=== PATIENT | male | born 1955 | race African-American/Black ===

== ENCOUNTER 2020-04-22 14:35 | Emergency (ER) | payer SELFPAY ==
--- NOTE | 2020-04-22 17:43 | RAD ---
CHEST ONE VIEW: 04/22/20 at 6;29 p.m. HISTORY: Acid reflux. FINDINGS: The heart size is normal. The aorta is tortuous. The lungs are expanded without focal area of consoli dation, pneumothoraces, or pleural effusions. IMPRESSION: No acute process. POS: EARNESTINEA
[2020-04-22 18:20] LABS: #Basophils 0.1 thou/uL (0.0-0.2); #Eosinphils 0.1 thou/uL (0.0-0.7); #Monocytes 0.6 thou/uL (0.11-0.59); #Neutrophils 4.8 thou/uL (1.40-6.50); %Basophils 1.2 % (0.0-1.0); %Lymphocytes 34.6 % (21.0-51.0); %Monocytes 7.1 % (0.0-10.0); %Neutrophils 56.2 % (42.0-75.0); Hemoglobin 13.9 g/dL (14.0-18.0); Mean Corpuscular HGB CONC 32.1 g/dL (32.0-36.0); Mean Corpuscular Hemoglobin 27.1 pg (27.0-31.0); Mean Corpuscular Volume 84.5 fL (78.0-98.0); Mean Platelet Volume 7.7 fL (7.4-10.4); Platelet Count 381 thou/uL (130-400); RBC Distribution Width 15.9 % (11.5-14.5); Red Blood Cell (RBC) Count 5.13 mill/uL (4.70-6.10); White Blood Cell (WBC) Count 8.6 thou/uL (4.8-10.8)
[2020-04-22 18:44] LABS: ALT (SGPT) 11 U/L (8-55); AST (SGOT) 20 U/L (5-34); Albumin 4.8 g/dL (3.4-4.8); Alkaline Phosphatase 82 U/L (40-110); Anion Gap 12 mmol/L (10-20); BUN (Urea Nitrogen) 14 mg/dL (8.4-25.7); Bilirubin, Total 0.5 mg/dL (0.2-1.2); Calc. Creatinine Clearance 0 mL/min (70-130); Calcium 9.8 mg/dL (7.8-10.44); Carbon Dioxide 27 mmol/L (23-31); Chloride 105 mmol/L (98-107); Estimated GFR-MDRD 79; Globulin 3.8 g/dL (2.4-3.5); Glucose 110 mg/dL (80-115); Lipase 21 U/L (8-78); Potassium 3.7 mmol/L (3.5-5.1); Protein, Total 8.6 g/dL (5.8-8.1); Sodium 140 mmol/L (136-145)
[2020-04-22] MEDS ORDERED: Aspirin Chewable 81 MG TAB ONE (18:47)
[2020-04-22] MEDS ORDERED: Ondansetron PF 4 MG/2 ML Vial ONE (18:47)
[2020-04-22] MEDS ORDERED: Nitroglycerin 2% Ointment 1 INCH/1 GM Packet ONE (18:47)
[2020-04-22] MEDS ORDERED: Gabapentin 100 MG CAP PO SCH (20:30)
[2020-04-22] MEDS ORDERED: Gabapentin 400 MG CAP PO SCH (20:30)
--- NOTE | 2020-04-24 17:38 | EKG ---
Test Reason : Blood Pressure : / mmHG Vent. Rate : 061 BPM Atrial Rate : 061 BPM P-R Int : 106 ms QRS Dur : 094 ms QT Int : 418 ms P-R-T Axes : 060 -16 009 degrees QTc Int : 420 ms Sinus rhythm with short GA Voltage criteria for left ventricular hypertrophy Abnormal ECG Confirmed by SHAWN SILVA, PEPE Holley ([id number]), purchase request editor HOMERO ORTIZ ([id number]) on 04/24/2020 5:37:52 PM Referred By: Confirmed By:PEPE ESCOBAR MD
== END 2020-04-22 21:00 | disposition left against medical advice (07) ==
LOC: ERS 14:35
DX: R07.9 Chest pain, unspecified (principal); I10 Essential (primary) hypertension; F17.210 Nicotine dependence, cigarettes, uncomplicated; Z79.899 Other long term (current) drug therapy
CPT/HCPCS: 71045; 80053; 83690; 84484; 85025; 93005; 94760; 96374; J2405

== ENCOUNTER 2020-08-23 20:26 | Observation (INO) | payer OTHER ==
[2020-08-23] MEDS ORDERED: Mag-Al 1200 mg/1200 mg/30 ML UDCUP ONE (20:42)
[2020-08-23] MEDS ORDERED: Ondansetron PF 4 MG/2 ML Vial ONE (20:42)
[2020-08-23] MEDS ORDERED: Lidocaine Viscous Sol 2% 15 ml UD Cup ONE (20:42)
[2020-08-23 20:58] LABS: #Basophils 0.1 thou/uL (0.0-0.2); #Eosinphils 0.1 thou/uL (0.0-0.7); #Lymphocytes 2.6 thou/uL (1.20-3.40); #Monocytes 0.8 thou/uL (0.11-0.59); #Neutrophils 7.2 thou/uL (1.40-6.50); %Basophils 0.8 % (0.0-1.0); %Eosinophils 1.2 % (0.0-10.0); %Lymphocytes 23.9 % (21.0-51.0); %Monocytes 7.4 % (0.0-10.0); %Neutrophils 66.7 % (42.0-75.0); Hemoglobin 12.9 g/dL (14.0-18.0); Mean Corpuscular HGB CONC 33.4 g/dL (32.0-36.0); Mean Corpuscular Hemoglobin 27.8 pg (27.0-31.0); Mean Corpuscular Volume 83.3 fL (78.0-98.0); Mean Platelet Volume 7.5 fL (7.4-10.4); Platelet Count 352 thou/uL (130-400); RBC Distribution Width 15.6 % (11.5-14.5); Red Blood Cell (RBC) Count 4.63 mill/uL (4.70-6.10); White Blood Cell (WBC) Count 10.8 thou/uL (4.8-10.8)
[2020-08-23 21:20] LABS: ALT (SGPT) 9 U/L (8-55); AST (SGOT) 20 U/L (5-34); Albumin 4.3 g/dL (3.4-4.8); Alkaline Phosphatase 70 U/L (40-110); Anion Gap 15 mmol/L (10-20); BUN (Urea Nitrogen) 12 mg/dL (8.4-25.7); Bilirubin, Total 0.3 mg/dL (0.2-1.2); Calc. Creatinine Clearance 0 mL/min (70-130); Carbon Dioxide 23 mmol/L (23-31); Chloride 105 mmol/L (98-107); Estimated GFR-MDRD Greater than 90; Globulin 3.5 g/dL (2.4-3.5); Glucose 81 mg/dL (80-115); Lipase 18 U/L (8-78); Potassium 4.4 mmol/L (3.5-5.1); Protein, Total 7.8 g/dL (5.8-8.1); Sodium 139 mmol/L (136-145)
--- NOTE | 2020-08-23 21:48 | RAD ---
ABDOMINAL SURVEY WITH UPRIGHT CHEST AND TWO VIEW ABDOMEN: Technique: PA chest and supine and upright views of the abdomen obtained. Indications: Epigastric pain, vomiting. FINDINGS: The lung gaona are clear. Heart and mediastinum appear normal. Bowel gas pattern unremarkable. Scattered stool and gas in the colon. No mass or abnormal calcificati ons. Osseous structures unremarkable. IMPRESSION: Unremarkable exam. POS: AGW
[2020-08-23] MEDS ORDERED: Promethazine HCl 25 MG/ML VIAL ONE (22:10)
[2020-08-23] MEDS ORDERED: hydrALAZINE 20 MG/ML VIAL SLOW IVP SCH (23:15)
[2020-08-23] MEDS ORDERED: Baclofen 10 MG TAB PO SCH (23:45)
[2020-08-23] MEDS ORDERED: Pantoprazole 40 MG VIAL IVP SCH (23:59)
--- NOTE | 2020-08-24 00:51 | PDOC.HHP ---
Hospitalist HPI - History of Present Illness Hiccups, reflux and vomiting History of Present Illness: ADMISSION DATE: 08/23/2020 TIME OF ASSESSMENT: 2300 PRIMARY CARE PHYSICIAN: [facility] CHIEF COMPLAINT: Persistent reflux, vomiting and hiccups HPI: Patient presents to the emergency department after experiencing an episode of coffee-ground emesis earlier today that occurred once. States he has had p ersistent vomiting unable to tolerate any p.o. intake since last Sunday. He states it first started with severe reflux that began Sunday morning when he woke up and has persisted throughout the day every day since. It has only resolved at night when he is sleeping. States he has a known history of reflux in the past but has never undergone any endoscopic procedures. Patient reports having persistent hiccups as well throughout the day. He takes omeprazole at home but this has not helped. He saw his new primary care physician at the OR clinic on Sunday but has not followed up with him since developing the symptoms. ROS: Denies having any abdominal pain or cramping. Reports mild soreness due to persistent hiccups. Has not had any fevers chills or sweats. Denies any bowel changes or urinary symptoms. Has not experienced any chest pain palpitations or shortness of breath. All other review systems are negative apart from those mentioned above in HPI. ED COURSE: He had an EKG done in the emergency department showing a normal sinus rhythm with a heart rate of 75. No ST changes or T wave abnormalities. Labs notable for white cell count 10.8 hemoglobin 12.9 hematocrit 30.6 platelets 352 neutrophils 66.7%. Potassium 4.4, BUN 12, creatinine 0.81, GFR greater than 90. LFTs unremarkable. Lipase normal. Troponin negative. Abdominal x-ray showed unremarkable exam. In the emergency department he was given a GI cocktail as well as Phenergan 12.5 mg IV for nausea/vomiting. Also given 4 mg of Zofran. For an elevated blood pressure in the 190s to low 200s systolic he was given hydralazine 10 mg IV. PAST MEDICAL HISTORY: 1. Hypertension 2. GERD 3. Hepatitis C 4. PTSD 5. Tobacco use PAST SURGICAL HISTORY: Left knee meniscus repair SOCIAL HISTORY: Patient reports smoking 3 cigarettes a day. Smoked heavily in the past. Denies any recent alcohol consumption. States he is a social drinker. Denies any drug use. FAMILY HISTORY: Noncontributory ALLERGIES: Penicillin CURRENT MEDICATIONS: 1. Hydralazine 25 mg p.o. 3 times daily 2. Atenolol 25 mg p.o. daily 3. Omeprazole 40 mg p.o. daily - Exam General Appearance: NAD (Persistent hiccups, no distress), awake alert General - other findings: Temperature 98.2, BP 116/100, HR 91, RR 18, O2 sat 97% on room air. Eye: PERRL, anicteric sclera ENT: normocephalic atraumatic, no oropharyngeal lesions, moist mucosa Neck: supple, no lymphadenopathy Heart: RRR Respiratory: CTAB, no wheezes, no rales, normal chest expansion Gastrointestinal: soft, non-tender, non-distended, normal bowel sounds, no guarding, no rigidity Extremities: no edema Skin: normal turgor, no lesions, no rashes Neurological: cranial nerve grossly intact, normal sensation to touch Musculoskeletal: normal tone, normal strength Psychiatric: normal affect, normal behavior, A&O x 3 Hospitalist Results - Labs Result Diagrams: 08/23/20 20:49 08/23/20 20:49 Lab results: WBC 10.8 thou/uL (4.8-10.8) 08/23/20 20:49 Hgb 12.9 g/dL (14.0-18.0) L 08/23/20 20:49 Hct 38.6 % (42.0-52.0) L 08/23/20 20:49 MCV 83.3 fL (78.0-98.0) 08/23/20 20:49 Plt Count 352 thou/uL (130-400) 08/23/20 20:49 Neutrophils % 66.7 % (42.0-75.0) 08/23/20 20:49 Sodium 139 mmol/L (136-145) 08/23/20 20:49 Potassium 4.4 mmol/L (3.5-5.1) 08/23/20 20:49 Chloride 105 mmol/L (98-107) 08/23/20 20:49 Carbon Dioxide 23 mmol/L (23-31) 08/23/20 20:49 BUN 12 mg/dL (8.4-25.7) 08/23/20 20:49 Creatinine 0.81 mg/dL (0.7-1.3) 08/23/20 20:49 Glucose 81 mg/dL (80-115) 08/23/20 20:49 Calcium 9.0 mg/dL (7.8-10.44) 08/23/20 20:49 Total Bilirubin 0.3 mg/dL (0.2-1.2) 08/23/20 20:49 AST 20 U/L (5-34) 08/23/20 20:49 ALT 9 U/L (8-55) 08/23/20 20:49 Alkaline Phosphatase 70 U/L (40-110) 08/23/20 20:49 Troponin I 0.010 ng/mL (< 0.028) 08/23/20 23:52 Serum Total Protein 7.8 g/dL (5.8-8.1) 08/23/20 20:49 Albumin 4.3 g/dL (3.4-4.8) 08/23/20 20:49 Lipase 18 U/L (8-78) 08/23/20 20:49 Hospitalist H&P A/P - Problem (1) Coffee ground emesis Code(s): K92.0 - HEMATEMESIS Status: Acute Assessment and Plan: Repeat H/H Pantoprazole 40 mg IV x 1, and continue daily. NPO. GI Consult. (2) Nausea and vomiting Code(s): R11.2 - NAUSEA WITH VOMITING, UNSPECIFIED Status: Acute Assessment and Plan: Continue anti-emetics prn. Check electrolytes. (3) Hiccups Code(s): R06.6 - HICCOUGH Status: Acute Assessment and Plan: Baclofen 10 mg IV x 1. Obtain CXR. (4) GERD (gastroesophageal reflux disease) Code(s): K21.9 - GASTRO-ESOPHAGEAL REFLUX DISEASE WITHOUT ESOPHAGITIS Status: Chronic Assessment and Plan: As above, continue Pantoprazole. (5) Hypertensive urgency Code(s): I16.0 - HYPERTENSIVE URGENCY Status: Acute Assessment and Plan: Given hydralazine 10 mg IV in the ED with improvement. Monitor BP. Resume home meds once verified. (6) Essential hypertension Code(s): I10 - ESSENTIAL (PRIMARY) HYPERTENSION Status: Chronic Assessment and Plan: As above, resume home meds as appropriate and monitor BP. (7) History of hepatitis Code(s): Z86.19 - PERSONAL HISTORY OF OTHER INFECTIOUS AND PARASITIC DISEASES Status: Chronic - Plan Plan: CODE STATUS FULL Case discussed with Dr. Perez who agrees with plan as above.
[2020-08-24] MEDS: Sodium Chloride 0.9% 1,000 ML IV SCH ×2 (01:27→20:20)
[2020-08-24 01:39] VITALS: BMI 20.5
[2020-08-24 02:51] LABS: #Basophils 0.1 thou/uL (0.0-0.2); #Eosinphils 0.1 thou/uL (0.0-0.7); #Lymphocytes 2.9 thou/uL (1.20-3.40); #Monocytes 0.9 thou/uL (0.11-0.59); #Neutrophils 5.6 thou/uL (1.40-6.50); %Basophils 0.8 % (0.0-1.0); %Eosinophils 1.4 % (0.0-10.0); %Lymphocytes 30.5 % (21.0-51.0); %Neutrophils 58.3 % (42.0-75.0); Hemoglobin 13.4 g/dL (14.0-18.0); Mean Corpuscular HGB CONC 34.1 g/dL (32.0-36.0); Mean Corpuscular Hemoglobin 28.5 pg (27.0-31.0); Mean Corpuscular Volume 83.4 fL (78.0-98.0); Mean Platelet Volume 7.5 fL (7.4-10.4); Platelet Count 347 thou/uL (130-400); RBC Distribution Width 15.6 % (11.5-14.5); White Blood Cell (WBC) Count 9.6 thou/uL (4.8-10.8)
[2020-08-24 03:15] LABS: Troponin I 0.013 ng/mL (< 0.028)
[2020-08-24 03:24] LABS: ALT (SGPT) 10 U/L (8-55); AST (SGOT) 15 U/L (5-34); Albumin 4.1 g/dL (3.4-4.8); Alkaline Phosphatase 74 U/L (40-110); Anion Gap 13 mmol/L (10-20); BUN (Urea Nitrogen) 11 mg/dL (8.4-25.7); Bilirubin, Total 0.4 mg/dL (0.2-1.2); Calc. Creatinine Clearance 77 mL/min (70-130); Calcium 9.4 mg/dL (7.8-10.44); Carbon Dioxide 23 mmol/L (23-31); Chloride 106 mmol/L (98-107); Estimated GFR-MDRD Greater than 90; Globulin 3.2 g/dL (2.4-3.5); Glucose 94 mg/dL (80-115); Potassium 3.8 mmol/L (3.5-5.1); Protein, Total 7.3 g/dL (5.8-8.1); Sodium 138 mmol/L (136-145)
--- NOTE | 2020-08-24 07:51 | ULT ---
GALLBLADDER ULTRASOUND: Date: 08/24/2020 HISTORY: Right upper quadrant pain. FINDINGS: Real-time imaging of the right upper quadrant shows a normal sized gallbladder. Small amount of gallb ladder sludge without any definite stones. Common duct is 4.0 mm. Liver is of mild increased echogeni city. Right kidney is normal in size and not obstructed. The pancreas is obscured. IMPRESSION: 1. Suggestion of some mild fatty change of the liver. 2. Minimal gallbladder sludge. POS: OFF
--- NOTE | 2020-08-24 09:08 | RAD ---
CHEST 2 VIEWS: Date: 08/24/2020 HISTORY: Forceful vomiting. COMPARISON: Radiograph dated 08/22/2020. FINDINGS: Lungs are mildly hyperinflated. No confluent air space consolidation, pneumothorax, or effusion. No a cute osseous abnormality. IMPRESSION: No acute intrathoracic abnormality. POS: H
[2020-08-24] MEDS: Pantoprazole 40 MG VIAL IVP SCH (10:23)
[2020-08-24 11:09] LABS: SARS-CoV-2 MS2 Positive; SARS-CoV-2 N Gene Negative; SARS-CoV-2 S Gene Negative; SARS-CoV-2 by NAA Not Detected (NotDetected); SARS-CoV-2 orf1ab Negative
[2020-08-24] MEDS ORDERED: Ondansetron PF 4 MG/2 ML Vial IVP PRN (12:30)
--- NOTE | 2020-08-24 12:43 | PDOC.HOSPP ---
- Subjective Encounter Date: 08/24/20 Encounter Time: 12:41 Subjective: Mr De Jesus was seen today in follow-up chronic hiccups, and vomiting. He says he feel fine, and that his symptoms usually only start when he eats. - Objective Vital Signs & Weight: Vital Signs (12 hours) Temp Pulse Resp BP Pulse Ox 08/24/20 11:21 98.9 F 63 18 197/105 H 99 08/24/20 08:15 98.7 F 62 16 171/97 H 97 08/24/20 04:00 98.9 F 74 18 167/100 H 98 Weight Weight 126 lb 12.8 oz Result Diagrams: 08/24/20 02:40 08/24/20 02:40 Hospitalist ROS - Medication Medications: Active Medications Generic Name Dose Route Start Last Admin Trade Name Freq PRN Reason Stop Dose Admin Sodium Chloride 1,000 mls @ 50 mls/hr 08/23/20 23:45 08/24/20 01:27 Normal Saline 0.9% IV 1,000 mls .Q20H TYRONE Administration Pantoprazole Sodium 40 mg 08/24/20 09:00 08/24/20 10:23 Pantoprazole 40 Mg Vial IVP 40 mg DAILY TYRONE Administration - Exam General Appearance: NAD, awake alert General - other findings: Cachectic Eye: PERRL, anicteric sclera Heart: RRR, no murmur, no gallops, no rubs, normal peripheral pulses Respiratory: CTAB, no wheezes, no rales, no ronchi, normal chest expansion, no tachypnea, normal percussion Gastrointestinal: soft, non-tender, non-distended, normal bowel sounds, no palpable masses, no hepatomegaly Extremities: no cyanosis, no edema Hosp A/P (1) Coffee ground emesis Code(s): K92.0 - HEMATEMESIS Status: Acute (2) Hiccups Code(s): R06.6 - HICCOUGH Status: Chronic (3) Hypertensive urgency Code(s): I16.0 - HYPERTENSIVE URGENCY Status: Acute (4) Essential hypertension Code(s): I10 - ESSENTIAL (PRIMARY) HYPERTENSION Status: Chronic (5) GERD (gastroesophageal reflux disease) Code(s): K21.9 - GASTRO-ESOPHAGEAL REFLUX DISEASE WITHOUT ESOPHAGITIS Status: Chronic - Plan * Vomiting, and Hiccups- ? etiology- continue Protonix IV * Add Anti-emetic * HTN with hypertensive Urgency- will add Hydralazine prn, while he is NPO
[2020-08-24] MEDS: hydrALAZINE 20 MG/ML VIAL SLOW IVP PRN (15:57)
[2020-08-24] MEDS ORDERED: Atenolol 25 MG TAB PO SCH (17:15)
[2020-08-24] MEDS ORDERED: Acetaminophen 325 MG TAB PO PRN (20:13)
--- NOTE | 2020-08-24 23:59 | CON ---
DATE OF CONSULTATION: 08/24/2020 REASON FOR CONSULTATION: Coffee-grounds emesis, nausea, and vomiting. CONSULTING PROVIDER: Ms. Valentina Mccarthy. HISTORY OF PRESENT ILLNESS: The patient is a 64-year-old male, with past medical history of hypertension, GERD, chronic hepatitis C, PTSD, and tobacco abuse, presenting with complaints of nausea vomiting, and coffee-grounds emesis x3. On questioning the patient, he states that over the last seven years he has been having recurrent episodes of acid reflux, characterized as increased substernal pyrosis, regurgitation, and ultimately resulting in increased hiccups, nausea, and vomiting. He states that he would get the reflux symptoms first (substernal pyrosis), which would then lead to hiccuping that he could not control and ultimately with nausea and vomiting to the point where the patient would vomit once or twice every 1 to 2 days. He has been evaluated for this in the past, but ultimately just placed on PPIs and discharged to outpatient followup. However, over the last week, the patient had been having increasing episodes of these reflux events to the point where he was having at least 2 to 3 episodes of vomiting every 1 to 2 days. Ultimately, he did continue to have vomiting that resulted in coffee-grounds emesis x3 yesterday, but no overtly bloody emesis. With the appearance of this darker colored emesis that prompted him to seek healthcare assistance at [facility]. Since admission to the hospital, he has had no further episodes of nausea, vomiting, coffee-ground, or otherwise. Upon further questioning, he does state that he has had approximately 15-pound weight loss over the last 1 to 2 weeks, but otherwise denies any fevers, chills, melena, hematochezia, dysphagia, odynophagia, diarrhea, or constipation. REVIEW OF SYSTEMS: A 10-category review of systems was obtained with all responses negative, except for the pertinent positives as listed in the HPI. PAST MEDICAL HISTORY: As per HPI. PAST SURGICAL HISTORY: Left knee meniscus repair. FAMILY HISTORY: Denies any GI malignancies. SOCIAL HISTORY: Smokes approximately 3 to 4 cigarettes a day, although he does state that he quit this last week. Denies any recent alcohol consumption in addition to no illicit drug use. OUTPATIENT MEDICATIONS: Reviewed. ALLERGIES: PENICILLIN. PHYSICAL EXAMINATION: VITAL SIGNS: Temperature 98.7, pulse 56, blood pressure 182/110, respiratory rate 18, and saturating 97% on room air. GENERAL: The patient is lying in bed, in no acute distress. Alert and oriented x4. HEENT: Normocephalic and atraumatic. NECK: Supple. No JVD or scleral icterus noted. CARDIOVASCULAR: Regular rate and rhythm, with no discernible murmurs, gallops, or rubs. RESPIRATORY: Clear to auscultation bilaterally, with no discernible wheezes or rales. ABDOMEN: Normoactive bowel sounds. Soft, nontender, and nondistended. EXTREMITIES: No cyanosis, clubbing, or edema. LABORATORY DATA: CBC with a white blood cell count of 9.6, hemoglobin 13.4, hematocrit 39.2, and platelets 347. Chemistry with a sodium of 138, potassium 3.8, chloride 106, CO2 of 23, BUN 11, creatinine 0.8, glucose 94, AST 15, ALT 10, alkaline phosphatase 74, and total bilirubin 0.4. IMAGING DATA: The patient had an acute abdominal series obtained on August 23, 2020, which was unremarkable showing a scattered stool and gas pattern in the colon, no masses or abnormal calcifications were seen. Abdominal ultrasound obtained on August 24, 2020, showed normal-sized gallbladder with a small amount of gallbladder sludge without any definite stones. Common bile duct measured 4 mm in diameter with the liver showing mild increased echogenicity suggestive of mild fatty change. ASSESSMENT AND PLAN: The patient is a 64-year-old male, with past medical history of hypertension, gastroesophageal reflux disease, chronic hepatitis C infection, posttraumatic stress disorder, and tobacco abuse, presenting with gastroesophageal reflux disease resulting in nausea, vomiting, and now coffee-ground hematemesis without significant change in his H and H. Gastroesophageal reflux disease/hematemesis. The patient states that he has been having a longstanding history of acid reflux, characterized as substernal pyrosis that ultimately resulted in repeated episodes of nausea and vomiting that has been present for the last seven years. This is also accompanied with increased hiccuping for which the patient has been not definitively treated for. He adds that he has been placed on PPI administration in the past with improvement in his symptoms, but it is unclear if he is taking the medication now (the patient states that he was taking it three times a day, 30 to 45 minutes before every meal). At this time, one of the more likely explanations would be these continued episodes of vomiting resulting in erosive esophagitis and ultimately mild oozing of blood, creating coffee-grounds emesis, but no significant change in his H and H, however, differential could include esophagitis, gastritis, peptic ulcer disease, arteriovenous malformation, Dieulafoy lesion and/or possible GI neoplasm (less likely). RECOMMENDATIONS: 1. We would continue to trend his H and H and transfuse as necessary to maintain an H and H of 7/21. 2. Continue to monitor clinically for signs of active GI bleeding. 3. We would place the patient on a clear liquid diet today with plans to perform EGD tomorrow morning. 4. Please make patient n.p.o. at midnight in anticipation of the procedure in the morning. 5. We would continue the patient on pantoprazole 40 mg IV daily as part of treatment of his acid reflux and will ultimately need to be discharged on this medication. 6. I would recommend better control of his acid reflux as part of treatment of his hiccups. 7. If the patient has only reflux esophagitis on upper endoscopy tomorrow, he could be potentially discharged to home after the procedure with followup in the outpatient clinic. Job ID: [id number]
[2020-08-25] MEDS: hydrALAZINE 20 MG/ML VIAL SLOW IVP PRN (03:00)
[2020-08-25 04:41] LABS: #Basophils 0.1 thou/uL (0.0-0.2); #Eosinphils 0.1 thou/uL (0.0-0.7); #Lymphocytes 2.9 thou/uL (1.20-3.40); #Monocytes 0.7 thou/uL (0.11-0.59); #Neutrophils 3.7 thou/uL (1.40-6.50); %Basophils 1.3 % (0.0-1.0); %Eosinophils 1.2 % (0.0-10.0); %Monocytes 9.1 % (0.0-10.0); %Neutrophils 49.4 % (42.0-75.0); Hemoglobin 13.7 g/dL (14.0-18.0); Mean Corpuscular HGB CONC 33.2 g/dL (32.0-36.0); Mean Corpuscular Hemoglobin 27.6 pg (27.0-31.0); Mean Corpuscular Volume 83.2 fL (78.0-98.0); Mean Platelet Volume 7.8 fL (7.4-10.4); Platelet Count 399 thou/uL (130-400); RBC Distribution Width 15.6 % (11.5-14.5); Red Blood Cell (RBC) Count 4.96 mill/uL (4.70-6.10); White Blood Cell (WBC) Count 7.5 thou/uL (4.8-10.8)
--- NOTE | 2020-08-25 07:44 | PDOC.HOSPP ---
- Objective Vital Signs & Weight: Vital Signs (12 hours) Temp Pulse Resp BP BP Pulse Ox 08/25/20 04:04 98.0 F 65 20 172/96 H 98 08/25/20 03:00 57 L 188/108 H 08/25/20 02:38 57 L 188/108 H 08/25/20 00:25 99 175/111 H Weight Admit Weight 126 lb 12.8 oz Weight 126 lb 12.8 oz I&O: 08/24/20 08/25/20 08/26/20 06:59 06:59 06:59 Intake Total 1680 Output Total 1585 Balance 95 Result Diagrams: 08/25/20 03:59 08/24/20 02:40 Hospitalist ROS - Medication Medications: Active Medications Generic Name Dose Route Start Last Admin Trade Name Freq PRN Reason Stop Dose Admin Acetaminophen 650 mg 08/24/20 20:13 08/24/20 20:20 Acetaminophen 325 Mg Tab PO 650 mg Q4H PRN Administration Headache/Fever/Mild Pain (1-3) Hydralazine HCl 10 mg 08/24/20 12:29 08/25/20 03:00 Hydralazine 20 Mg/Ml Vial SLOW IVP 10 mg Q4H PRN Administration SBP > 180 and HR < 70 Sodium Chloride 1,000 mls @ 50 mls/hr 08/23/20 23:45 08/24/20 20:20 Normal Saline 0.9% IV 1,000 mls .Q20H TYRONE Administration Pantoprazole Sodium 40 mg 08/24/20 09:00 08/24/20 10:23 Pantoprazole 40 Mg Vial IVP 40 mg DAILY TYRONE Administration Hosp A/P (1) Coffee ground emesis Code(s): K92.0 - HEMATEMESIS Status: Acute (2) Hiccups Code(s): R06.6 - HICCOUGH Status: Chronic (3) Hypertensive urgency Code(s): I16.0 - HYPERTENSIVE URGENCY Status: Acute (4) Essential hypertension Code(s): I10 - ESSENTIAL (PRIMARY) HYPERTENSION Status: Chronic (5) GERD (gastroesophageal reflux disease) Code(s): K21.9 - GASTRO-ESOPHAGEAL REFLUX DISEASE WITHOUT ESOPHAGITIS Status: Chronic - Plan * Vomiting, and Hiccups- ? etiology- continue Protonix IV * Add Anti-emetic * HTN with hypertensive Urgency- will add Hydralazine prn, while he is NPO
[2020-08-25] MEDS ORDERED: Nitroglycerin 2% Ointment 1 INCH/1 GM Packet TOP SCH ×3 (08:00→19:00)
[2020-08-25] MEDS ORDERED: Atenolol 25 MG TAB PO SCH (09:00)
--- NOTE | 2020-08-25 10:05 | OP ---
DATE OF PROCEDURE: 08/25/2020 PREPROCEDURE DIAGNOSES: 1. Coffee-ground emesis. 2. Severe reflux. 3. Normal hemoglobin. POSTPROCEDURE DIAGNOSES: 1. LA grade B reflux esophagitis with erosion of the gastroesophageal junction, nonbleeding. 2. Small hiatal hernia. 3. Otherwise normal esophagogastroduodenoscopy. RECOMMENDATIONS: Daily PPI therapy for reflux. If the patient has persistent vomiting or discomfort, consider ultrasound of the gallbladder to rule out other upper abdominal pathology that could result in symptoms of nausea and vomiting. ANESTHESIA: TIVA. PROCEDURE IN DETAIL: After the patient was informed of the risks, benefits, and possible complications of endoscopy including perforation, bleeding, reaction to medication, and aspiration, informed consent was obtained. The patient was brought to the endoscopy suite where he was sedated in gradual fashion. After the patient was comfortable, a bite block was placed in the incisural orifice. The endoscope was advanced to the esophagus, stomach, into the second and third portions of the duodenum. The esophagus was normal except for reflux changes and erosion of the GE junction. The Z-line was normal in appearance. There was no evidence of strictures or rings or active bleeding. There was no Monica-Clay tear. There was a small 3-cm sliding-type hiatal hernia. There were no signs of Ritchie's ulcers or erosions. Forward and retroflexed views of the stomach were otherwise normal. The pyloric channel and duodenum to the second and third portions were normal. The scope was removed after the stomach was desufflated. The patient tolerated the procedure well and was brought to recovery room in stable condition. Job ID: [id number]
[2020-08-25] MEDS: Pantoprazole 40 MG VIAL IVP SCH (10:38)
[2020-08-25] MEDS ORDERED: PROPOFOL 200 MG/20 ML VIAL ONE (10:46)
--- NOTE | 2020-08-25 13:02 | PDOC.HOSPP ---
- Subjective Encounter Date: 08/25/20 Encounter Time: 13:00 Subjective: Mr. De Jesus was seen today in follow-up of hiccups, and reflux symptoms. He says he feels much better today. He believes the Protonix is much more effective than the Prilosec. - Objective Vital Signs & Weight: Vital Signs (12 hours) Temp Pulse Resp BP BP Pulse Ox 08/25/20 07:12 98.4 F 74 18 172/104 H 95 08/25/20 04:04 98.0 F 65 20 172/96 H 98 08/25/20 03:00 57 L 188/108 H 08/25/20 02:38 57 L 188/108 H Weight Admit Weight 126 lb 12.8 oz Weight 126 lb 12.8 oz I&O: 08/24/20 08/25/20 08/26/20 06:59 06:59 06:59 Intake Total 1680 Output Total 1585 Balance 95 Result Diagrams: 08/25/20 03:59 08/24/20 02:40 Hospitalist ROS - Medication Medications: Active Medications Generic Name Dose Route Start Last Admin Trade Name Freq PRN Reason Stop Dose Admin Acetaminophen 650 mg 08/24/20 20:13 08/24/20 20:20 Acetaminophen 325 Mg Tab PO 650 mg Q4H PRN Administration Headache/Fever/Mild Pain (1-3) Atenolol 25 mg 08/25/20 09:00 08/25/20 09:19 Atenolol 25 Mg Tab PO 25 mg DAILY TYRONE Administration Hydralazine HCl 10 mg 08/24/20 12:29 08/25/20 03:00 Hydralazine 20 Mg/Ml Vial SLOW IVP 10 mg Q4H PRN Administration SBP > 180 and HR < 70 Sodium Chloride 1,000 mls @ 50 mls/hr 08/23/20 23:45 08/24/20 20:20 Normal Saline 0.9% IV 1,000 mls .Q20H TYRONE Administration - Exam Eye: PERRL, anicteric sclera Heart: RRR, no murmur, no gallops, no rubs, normal peripheral pulses Respiratory: CTAB, no wheezes, no rales, no ronchi, normal chest expansion Gastrointestinal: soft, non-tender, non-distended, normal bowel sounds, no palpable masses Extremities: no cyanosis, no edema Hosp A/P (1) Coffee ground emesis Code(s): K92.0 - HEMATEMESIS Status: Acute (2) Hiccups Code(s): R06.6 - HICCOUGH Status: Chronic (3) Hypertensive urgency Code(s): I16.0 - HYPERTENSIVE URGENCY Status: Acute (4) Essential hypertension Code(s): I10 - ESSENTIAL (PRIMARY) HYPERTENSION Status: Chronic (5) GERD (gastroesophageal reflux disease) Code(s): K21.9 - GASTRO-ESOPHAGEAL REFLUX DISEASE WITHOUT ESOPHAGITIS Status: Chronic - Plan * Vomiting, and Hiccups- Discussed with Dr. Boyd, and the EGD results noted. Symptoms most likely from severe GERD. * He has demonstrated improvement with just a few dose of IV Protonix * HTN with hypertensive Urgency-Discussed with the patient and [facility]. He has taken Lisinopril in the past with good results. * Will add Lisinopril/HCT to his regimen * Stable for discharge home later today if he tolerates an oral diet
[2020-08-25 14:26] VITALS: BP 189/100; TEMP 98.1
--- NOTE | 2020-08-25 18:26 | DIS ---
DATE OF ADMISSION: 08/23/2020 DATE OF DISCHARGE: 08/25/2020 DISCHARGE DISPOSITION: Home. DISCHARGE DIAGNOSES: 1. Severe gastroesophageal reflux disease. 2. Hypertension, poorly controlled. 3. History of hepatitis C. 4. History of post-traumatic stress disorder. 5. History of tobacco abuse. DISCHARGE MEDICATIONS: 1. Lisinopril/hydrochlorothiazide 08/09.5 one p.o. daily #30. 2. Pantoprazole 40 mg p.o. b.i.d. 3. Hydralazine 25 mg q.8 hours. 4. Atenolol 25 mg daily. CODE STATUS: Full code. ALLERGIES: TO PENICILLIN. IMAGING DONE DURING THE HOSPITAL STAY: The patient had an upper endoscopy, in which there was a LA grade B reflux esophagitis with erosion of the gastroesophageal junction. A small hiatal hernia, otherwise normal EGD. The patient had an abdominal ultrasound, in which there was some suggestive of some mild fatty changes of the liver and minimal gallbladder sludge. HOSPITAL COURSE: Mr. De Jesus is a pleasant 64-year-old gentleman, who was admitted to the hospital after having intractable hiccups as well as vomiting. He had one episode of coffee-ground emesis. He was admitted to the hospital and his hemoglobin and hematocrit were monitored. He was also placed on a proton pump inhibitor. He symptomatically improved quite dramatically after being changed from omeprazole to Protonix. He underwent EGD as well as abdominal ultrasound and it was felt that the etiology of the symptoms was likely related to the gastroesophageal reflux. The omeprazole was likely not powerful enough and he was switched to Protonix, which he had great results. He was able to eat without difficulty prior to discharge and he will be following up at the [facility]. He also had uncontrolled hypertension, in which we added lisinopril/hydrochlorothiazide to his regimen. He had previously been on lisinopril in the past. We reviewed his medications from the [facility] on his tablet in the room and hopefully, this will help in lowering his blood pressure. Also, he is to follow up with his blood pressure at the [facility] as well. Job ID: [id number]
[2020-08-25] MEDS ORDERED: Pantoprazole 40 MG GRANULES PACKET PO SCH (21:00)
== END 2020-08-25 13:50 | disposition left against medical advice (07) ==
LOC: ERS 20:26 → 2NO 23:15
PROVIDERS: ADMIT Internal Medicine; ATTEND Internal Medicine
PROC: 0DJ08ZZ Inspection of Upper Intestinal Tract, Via Natural or Artificial Opening Endoscopic (ICD-10-PCS; principal; 2020-08-25)
DX: K21.01 Gastro-esophageal reflux disease with esophagitis, with bleeding (principal); K22.11 Ulcer of esophagus with bleeding; K44.9 Diaphragmatic hernia without obstruction or gangrene; I16.0 Hypertensive urgency; I10 Essential (primary) hypertension; F43.10 Post-traumatic stress disorder, unspecified; F17.210 Nicotine dependence, cigarettes, uncomplicated; Z86.19 Personal history of other infectious and parasitic diseases; Z79.899 Other long term (current) drug therapy; Z88.0 Allergy status to penicillin; Z20.828 Contact with and (suspected) exposure to other viral communicable diseases
CPT/HCPCS: 36415; 71046; 74022; 76705; 80053; 83690; 84484; 85025; 87635; 93005; 96365; 96375; 96376; C9113; G0378; J0360; J2405; J2550; J2704; U0003

== ENCOUNTER 2023-03-05 11:42 | Observation (INO) | payer OTHER ==
[2023-03-05 12:17] LABS: #Eosinphils 0.2 thou/uL (0.0-0.7); #Monocytes 1.2 thou/uL (0.11-0.59); #Neutrophils 4.7 thou/uL (1.40-6.50); %Basophils 0.5 % (0.0-1.0); %Eosinophils 2.3 % (0.0-10.0); %Monocytes 15.5 % (0.0-10.0); %Neutrophils 60.4 % (42.0-75.0); Hemoglobin 11.4 g/dL (14.0-18.0); Mean Corpuscular Hemoglobin 25.4 pg (27.0-31.0); Mean Corpuscular Volume 76.8 fl (78.0-98.0); Mean Platelet Volume 8.4 fL (7.4-10.4); Platelet Count 423 10x3/uL (130-400); RBC Distribution Width 18.3 % (11.5-14.5); Red Blood Cell (RBC) Count 4.49 mill/uL (4.70-6.10); White Blood Cell (WBC) Count 7.9 10x3/uL (4.8-10.8)
[2023-03-05] MEDS ORDERED: Acetaminophen 500 MG TAB ONE (12:21)
[2023-03-05 12:37] LABS: ALT (SGPT) 13 U/L (8-55); AST (SGOT) 18 U/L (5-34); Albumin 4.2 g/dL (3.4-4.8); Alkaline Phosphatase 64 U/L (40-110); Anion Gap 15 mmol/L (10-20); BUN (Urea Nitrogen) 13 mg/dL (8.4-25.7); Bilirubin, Total 0.5 mg/dL (0.2-1.2); CK (CPK) 89 U/L (30-200); Calc. Creatinine Clearance 0 mL/min (70-130); Calcium 9.1 mg/dL (7.8-10.44); Carbon Dioxide 20 mmol/L (23-31); Chloride 104 mmol/L (98-107); Estimated GFR 95; Globulin 3.1 g/dL (2.4-3.5); Glucose 90 mg/dL (80-115); Lipase 19 U/L (8-78); Potassium 3.7 mmol/L (3.5-5.1); Protein, Total 7.3 g/dL (5.8-8.1); Sodium 135 mmol/L (136-145)
[2023-03-05] MEDS ORDERED: Acetaminophen 325 MG TAB PO PRN (15:11)
[2023-03-05] MEDS ORDERED: Senokot S 8.6-50 MG TAB PO PRN (15:11)
[2023-03-05] MEDS ORDERED: Calcium Carbonate 500 MG ChewTAB PO PRN (15:11)
[2023-03-05] MEDS ORDERED: Ondansetron PF 4 MG/2 ML Vial IVP PRN (15:11)
[2023-03-05] MEDS ORDERED: Aspirin 81 mg Enteric Coated Tablet PO SCH (16:30)
[2023-03-05] MEDS ORDERED: Clopidogrel Bisulfate 300 MG TAB PO SCH (16:30)
[2023-03-05 16:31] LABS: Troponin I 0.029 ng/mL (< 0.028)
[2023-03-05] MEDS ORDERED: Meclizine HCl 25 MG TAB PO PRN (16:34)
[2023-03-05] MEDS ORDERED: hydrALAZINE 20 MG/ML VIAL SLOW IVP PRN (16:42)
[2023-03-05 19:12] LABS: Troponin I 0.022 ng/mL (< 0.028)
[2023-03-05] MEDS: Doxycycline 100 MG CAP PO SCH (20:02)
[2023-03-05 20:35] LABS: Troponin I Less than 0.010 ng/mL (< 0.028)
[2023-03-05] MEDS: hydrALAZINE 25 MG TAB PO SCH (21:30)
[2023-03-06 04:45] LABS: #Eosinphils 0.2 thou/uL (0.0-0.7); #Neutrophils 3.9 thou/uL (1.40-6.50); %Basophils 0.4 % (0.0-1.0); %Eosinophils 2.8 % (0.0-10.0); %Lymphocytes 25.3 % (21.0-51.0); %Monocytes 14.2 % (0.0-10.0); %Neutrophils 57.2 % (42.0-75.0); Hemoglobin 10.8 g/dL (14.0-18.0); Mean Corpuscular Hemoglobin 25.7 pg (27.0-31.0); Mean Corpuscular Volume 77.9 fl (78.0-98.0); Mean Platelet Volume 8.7 fL (7.4-10.4); Platelet Count 422 10x3/uL (130-400); RBC Distribution Width 18.1 % (11.5-14.5); White Blood Cell (WBC) Count 6.8 10x3/uL (4.8-10.8)
[2023-03-06] MEDS: hydrALAZINE 25 MG TAB PO SCH (05:11)
[2023-03-06 05:12] LABS: ALT (SGPT) 12 U/L (8-55); AST (SGOT) 15 U/L (5-34); Alkaline Phosphatase 60 U/L (40-110); Anion Gap 11 mmol/L (10-20); BUN (Urea Nitrogen) 13 mg/dL (8.4-25.7); Bilirubin, Total 0.4 mg/dL (0.2-1.2); Calc. Creatinine Clearance 64 mL/min (70-130); Calcium 9.1 mg/dL (7.8-10.44); Carbon Dioxide 21 mmol/L (23-31); Chloride 106 mmol/L (98-107); Estimated GFR 93; Glucose 106 mg/dL (80-115); Potassium 3.9 mmol/L (3.5-5.1); Sodium 134 mmol/L (136-145)
[2023-03-06] MEDS: Doxycycline 100 MG CAP PO SCH (08:16)
[2023-03-06] MEDS ORDERED: Clopidogrel Bisulfate 75 MG TAB PO SCH (09:00)
[2023-03-06] MEDS ORDERED: Atenolol 25 MG TAB PO SCH (09:00)
[2023-03-06] MEDS ORDERED: Aspirin 81 mg Enteric Coated Tablet PO SCH (09:00)
[2023-03-06] MEDS ORDERED: hydrALAZINE 25 MG TAB PO SCH (09:00)
[2023-03-06] MEDS ORDERED: Lisinopril/Hydrochlorothiazide 10 mg/12.5 mg Tablet PO SCH (09:00)
[2023-03-06] MEDS ORDERED: ADENOSINE 60 MG/20 ML SDV ONE (09:04)
[2023-03-06 16:17] VITALS: TEMP 98.9
[2023-03-06] MEDS ORDERED: Carvedilol 25 MG TAB PO SCH (17:00)
[2023-03-06 17:44] VITALS: BP 152/93
[2023-03-06] MEDS ORDERED: Atorvastatin Calcium 40 MG TAB PO SCH (21:00)
== END 2023-03-06 18:26 | disposition home or self-care (01) ==
LOC: ERS 11:42 → SUATTDRO 11:42 → 2SW 16:55
PROVIDERS: ADMIT Internal Medicine; ATTEND Internal Medicine
DX: R07.89 Other chest pain (principal); R51.9 Headache, unspecified; R42 Dizziness and giddiness; I25.10 Atherosclerotic heart disease of native coronary artery without angina pectoris; I10 Essential (primary) hypertension; E78.5 Hyperlipidemia, unspecified; J32.9 Chronic sinusitis, unspecified; K21.9 Gastro-esophageal reflux disease without esophagitis; I25.2 Old myocardial infarction; F17.210 Nicotine dependence, cigarettes, uncomplicated; B19.20 Unspecified viral hepatitis C without hepatic coma; Z79.02 Long term (current) use of antithrombotics/antiplatelets; Z79.82 Long term (current) use of aspirin; Z79.899 Other long term (current) drug therapy; Z88.0 Allergy status to penicillin; Z95.5 Presence of coronary angioplasty implant and graft
CPT/HCPCS: 36415; 70450; 71045; 78452; 80053; 82550; 83690; 83880; 84484; 85025; 93005; 93010; 93017; 96374; A9500; G0378; J0153; J0360

== ENCOUNTER 2024-03-27 06:52 | Emergency (ER) | payer OTHER ==
[2024-03-27 08:23] LABS: #Basophils Less than 0.03 10x3/uL (0.0-0.2); %Basophils 0.2 % (0.0-1.0); %Eosinophils 0.8 % (0.0-10.0); %Lymphocytes 19.7 % (21.0-51.0); %Monocytes 9.3 % (0.0-10.0); %Neutrophils 69.9 % (42.0-75.0); Hematocrit 36.4 % (42.0-52.0); Hemoglobin 11.9 g/dL (14.0-18.0); Mean Corpuscular HGB CONC 32.7 g/dL (32.0-36.0); Mean Corpuscular Hemoglobin 26.2 pg (27.0-31.0); Mean Corpuscular Volume 80.2 fL (78.0-98.0); Mean Platelet Volume 8.9 fL (7.4-10.4); Platelet Count 556 10x3/uL (130-400); RBC Distribution Width 17.2 % (11.5-14.5); Red Blood Cell (RBC) Count 4.54 mill/uL (4.70-6.10)
[2024-03-27 08:40] LABS: ALT (SGPT) 9 U/L (8-55); AST (SGOT) 24 U/L (5-34); Albumin 4.2 g/dL (3.4-4.8); Alkaline Phosphatase 73 U/L (40-110); Anion Gap 14 mmol/L (10-20); BUN (Urea Nitrogen) 14 mg/dL (8.4-25.7); Bilirubin, Total 0.5 mg/dL (0.2-1.2); Calc. Creatinine Clearance 0 mL/min (70-130); Calcium 9.7 mg/dL (7.8-10.44); Carbon Dioxide 21 mmol/L (23-31); Chloride 107 mmol/L (98-107); Estimated GFR 94; Globulin 3.4 g/dL (2.4-3.5); Glucose 89 mg/dL (80-115); Magnesium 1.7 mg/dL (1.6-2.6); Potassium 3.8 mmol/L (3.5-5.1); Protein, Total 7.6 g/dL (5.8-8.1); Sodium 138 mmol/L (136-145)
[2024-03-27 08:42] LABS: Troponin I 0.015 ng/mL (< 0.028)
[2024-03-27] MEDS ORDERED: Morphine 4 MG/ML VIAL ONE (08:50)
[2024-03-27] MEDS ORDERED: Ondansetron PF 4 MG/2 ML Vial ONE (08:51)
== END 2024-03-27 10:40 | disposition home or self-care (01) ==
LOC: ERS 06:52
DX: S42.031A Displaced fracture of lateral end of right clavicle, initial encounter for closed fracture (principal); I10 Essential (primary) hypertension; F17.210 Nicotine dependence, cigarettes, uncomplicated; X58.XXXA Exposure to other specified factors, initial encounter
CPT/HCPCS: 36415; 70450; 71045; 72125; 80053; 82550; 83735; 84484; 85025; 93005; 96374; 96375; J2270; J2405

== ENCOUNTER 2024-04-19 01:55 | Inpatient (IN) | payer OTHER ==
[2024-04-19 02:23] LABS: #Basophils Less than 0.03 10x3/uL (0.0-0.2); %Basophils 0.2 % (0.0-1.0); %Lymphocytes 27.2 % (21.0-51.0); %Monocytes 14.4 % (0.0-10.0); Hematocrit 29.7 % (42.0-52.0); Hemoglobin 10.1 g/dL (14.0-18.0); Mean Corpuscular Hemoglobin 26.4 pg (27.0-31.0); Mean Corpuscular Volume 77.5 fL (78.0-98.0); Mean Platelet Volume 8.7 fL (7.4-10.4); Platelet Count 487 10x3/uL (130-400); RBC Distribution Width 16.4 % (11.5-14.5); Red Blood Cell (RBC) Count 3.83 mill/uL (4.70-6.10)
[2024-04-19 02:39] LABS: ALT (SGPT) 18 U/L (8-55); AST (SGOT) 32 U/L (5-34); Albumin 4.2 g/dL (3.4-4.8); Alkaline Phosphatase 63 U/L (40-110); Anion Gap 14 mmol/L (10-20); BUN (Urea Nitrogen) 28 mg/dL (8.4-25.7); Bilirubin, Total 0.3 mg/dL (0.2-1.2); Calc. Creatinine Clearance 0 mL/min (70-130); Calcium 9.4 mg/dL (7.8-10.44); Carbon Dioxide 19 mmol/L (23-31); Chloride 103 mmol/L (98-107); Estimated GFR 81; Globulin 3.7 g/dL (2.4-3.5); Glucose 148 mg/dL (80-115); Magnesium 1.9 mg/dL (1.6-2.6); Potassium 4.4 mmol/L (3.5-5.1); Protein, Total 7.9 g/dL (5.8-8.1); Sodium 132 mmol/L (136-145)
[2024-04-19 02:43] LABS: Troponin I Less than 0.010 ng/mL (< 0.028)
[2024-04-19] MEDS ORDERED: Ondansetron PF 4 MG/2 ML Vial IVP PRN (04:52)
[2024-04-19] MEDS ORDERED: Acetaminophen 325 MG TAB PO PRN (04:52)
[2024-04-19 05:09] LABS: Bacteria/HPF None Seen HPF (None Seen); Bilirubin Negative (Negative); Blood, Urine Negative (Negative); CAUTI Indications for Culture Pelvic or flank pain; Clarity Clear (Clear); Glucose, Urine (Dipstick) Normal (Negative); Ketone, Urine Negative (Negative); Leukocyte Negative Leu/uL (Negative); Nitrite Negative (Negative); Protein, Urine (Dipstick) Negative (Neg-Trace); RBC/HPF 0-3 HPF (0-3); Specific Gravity, Urine 1.015 (1.002-1.036); Squamous Epithelial 0-3 HPF (0-3); Urobilinogen Normal mg/dL (Less than 2); WBC/HPF 0-3 HPF (0-3)
[2024-04-19 05:10] LABS: Urine Culture Reflex No No
[2024-04-19 05:14] LABS: Amphetamine Not Detected (NotDetected); Barbiturates Screen Not Detected (NotDetected); Benzodiazepine Screen Not Detected (NotDetected); Cocaine Metabolite Screen Not Detected (NotDetected); Methadone Not Detected (NotDetected); Methamphetamine Not Detected (NotDetected); Opiate Screen Detected (NotDetected); Oxycodone Screen Not Detected (NotDetected); Phencyclidine (PCP) Not Detected (NotDetected); THC/Cannabinoid Screen Detected (NotDetected); Tricyclic Screen Not Detected (NotDetected)
[2024-04-19 06:00] LABS: Troponin I Less than 0.010 ng/mL (< 0.028)
[2024-04-19 07:02] VITALS: BMI 19.2
[2024-04-19 08:34] LABS: Troponin I Less than 0.010 ng/mL (< 0.028)
[2024-04-19] MEDS ORDERED: ADENOSINE 60 MG/20 ML SDV ONE (10:32)
[2024-04-19] MEDS ORDERED: Nitroglycerin 0.4 MG TAB (25 Tab Bottle) SL PRN (13:31)
[2024-04-19] MEDS ORDERED: Meclizine HCl 25 MG TAB PO PRN (13:31)
[2024-04-19] MEDS: Losartan 25 MG TAB PO SCH (15:14)
[2024-04-19] MEDS: Carvedilol 6.25 MG TAB PO SCH (15:14)
[2024-04-19] MEDS: hydrALAZINE 25 MG TAB PO SCH (15:14)
[2024-04-19 16:05] VITALS: BP 124/75; TEMP 97.5
[2024-04-19] MEDS ORDERED: oxyCODONE 5 MG TAB PO SCH (20:00)
[2024-04-19] MEDS ORDERED: Atorvastatin Calcium 40 MG TAB PO SCH (21:00)
[2024-04-19] MEDS ORDERED: Carvedilol 25 MG TAB PO SCH (21:00)
[2024-04-19] MEDS ORDERED: Losartan 25 MG TAB PO SCH (21:00)
[2024-04-20] MEDS ORDERED: Clopidogrel Bisulfate 75 MG TAB PO SCH (09:00)
[2024-04-20] MEDS ORDERED: Aspirin 81 mg Enteric Coated Tablet PO SCH (09:00)
[2024-04-20] MEDS ORDERED: Pantoprazole DR 40 MG TAB PO SCH (09:00)
== END 2024-04-19 19:54 | disposition left against medical advice (07) | DRG 313 ==
LOC: ERS 01:55 → 2NO 06:10 → OBSVTOIN 13:31
PROVIDERS: ADMIT Internal Medicine; ATTEND Hospitalist
DX: R07.9 Chest pain, unspecified (principal); I10 Essential (primary) hypertension; E78.5 Hyperlipidemia, unspecified; K21.9 Gastro-esophageal reflux disease without esophagitis; I25.10 Atherosclerotic heart disease of native coronary artery without angina pectoris; D64.9 Anemia, unspecified; B19.20 Unspecified viral hepatitis C without hepatic coma; Z66 Do not resuscitate; R61 Generalized hyperhidrosis; I25.2 Old myocardial infarction; Z88.0 Allergy status to penicillin; Z79.899 Other long term (current) drug therapy; Z87.891 Personal history of nicotine dependence; Z85.05 Personal history of malignant neoplasm of liver; Z79.82 Long term (current) use of aspirin; Z79.02 Long term (current) use of antithrombotics/antiplatelets; Z95.5 Presence of coronary angioplasty implant and graft; Z86.74 Personal history of sudden cardiac arrest
CPT/HCPCS: 36415; 71045; 78452; 80053; 80306; 81001; 83735; 84484; 85025; 93005; 93017; A9502

== ENCOUNTER 2024-09-07 10:54 | Emergency (ER) | payer MEDICARE, OTHER ==
[2024-09-07] MEDS ORDERED: Morphine 2 MG/ML VIAL ONE (11:21)
[2024-09-07] MEDS ORDERED: Ketorolac Tromethamine 30 MG (1 mL) VIAL ONE (11:21)
[2024-09-07 12:12] LABS: #Basophils Less than 0.03 10x3/uL (0.0-0.2); %Basophils 0.3 % (0.0-1.0); %Eosinophils 1.7 % (0.0-10.0); %Lymphocytes 32.9 % (21.0-51.0); %Monocytes 11.9 % (0.0-10.0); %Neutrophils 52.9 % (42.0-75.0); Hematocrit 33.1 % (42.0-52.0); Hemoglobin 10.9 g/dL (14.0-18.0); Mean Corpuscular HGB CONC 32.9 g/dL (32.0-36.0); Mean Corpuscular Hemoglobin 25.2 pg (27.0-31.0); Mean Corpuscular Volume 76.4 fL (78.0-98.0); Mean Platelet Volume 8.9 fL (7.4-10.4); Platelet Count 492 10x3/uL (130-400); RBC Distribution Width 16.8 % (11.5-14.5); Red Blood Cell (RBC) Count 4.33 mill/uL (4.70-6.10)
[2024-09-07 12:21] LABS: ALT (SGPT) 7 U/L (8-55); AST (SGOT) 16 U/L (5-34); Albumin 3.9 g/dL (3.4-4.8); Alkaline Phosphatase 65 U/L (40-110); Anion Gap 12 mmol/L (10-20); BUN (Urea Nitrogen) 15 mg/dL (8.4-25.7); Bilirubin, Total 0.4 mg/dL (0.2-1.2); Calc. Creatinine Clearance 0 mL/min (70-130); Calcium 9.3 mg/dL (7.8-10.44); Carbon Dioxide 23 mmol/L (23-31); Chloride 109 mmol/L (98-107); Estimated GFR 94; Globulin 3.3 g/dL (2.4-3.5); Glucose 74 mg/dL (80-115); Protein, Total 7.2 g/dL (5.8-8.1); Sodium 140 mmol/L (136-145)
[2024-09-07] MEDS ORDERED: hydrALAZINE 25 MG TAB ONE (12:53)
[2024-09-07] MEDS ORDERED: Losartan 25 MG TAB ONE (12:55)
== END 2024-09-07 13:05 | disposition home or self-care (01) ==
LOC: ERS 10:54
DX: S70.02XA Contusion of left hip, initial encounter (principal); D63.8 Anemia in other chronic diseases classified elsewhere; I10 Essential (primary) hypertension; I25.2 Old myocardial infarction; K21.9 Gastro-esophageal reflux disease without esophagitis; V28.49XA Other motorcycle driver injured in noncollision transport accident in traffic accident, initial encounter; Y93.55 Activity, bike riding; Z55.0 Illiteracy and low-level literacy; Z87.891 Personal history of nicotine dependence; Z95.5 Presence of coronary angioplasty implant and graft; Z79.899 Other long term (current) drug therapy
CPT/HCPCS: 72170; 72192; 73502; 80053; 85025; J1885; J2272; 36415; 96374; 96375

== ENCOUNTER 2025-07-15 14:27 | Inpatient (IN) | payer MEDICARE, OTHER ==
[2025-07-15] MEDS ORDERED: Heparin 10,000 UNITS/ 10 ML VIAL ONE (15:05)
[2025-07-15] MEDS ORDERED: Aspirin Chewable 81 MG TAB ONE (15:05)
[2025-07-15] MEDS ORDERED: Nitroglycerin 0.4 MG TAB (25 Tab Bottle) ONE (15:05)
[2025-07-15] MEDS ORDERED: Heparin 25,000 UNITS/D5W 500 ml bag ONE (15:05)
[2025-07-15] MEDS ORDERED: Droperidol 5 MG/2 ML VIAL ONE (15:10)
[2025-07-15] MEDS ORDERED: Metoprolol Tartrate 5 MG (5 mL) VIAL ONE (15:11)
[2025-07-15] MEDS ORDERED: niCARdipine 25 MG/10 ML SDV ONE (15:13)
[2025-07-15 15:26] LABS: #Basophils 0.03 10x3/uL (0.0-0.2); #Eosinophils 0.11 10x3/uL (0.0-0.7); #Monocytes 0.85 10x3/uL (0.11-0.59); #Neutrophils 4.91 10x3/uL (1.40-6.50); %Basophils 0.4 % (0.0-1.0); %Eosinophils 1.4 % (0.0-10.0); %Lymphocytes 27.0 % (21.0-51.0); %Monocytes 10.5 % (0.0-10.0); %Neutrophils 60.3 % (42.0-75.0); Hematocrit 32.0 % (42.0-52.0); Hemoglobin 10.2 g/dL (14.0-18.0); Mean Corpuscular Hemoglobin 22.7 pg (27.0-31.0); Mean Corpuscular Volume 71.3 fL (78.0-98.0); Platelet Count 446 10x3/uL (130-400); Red Blood Cell (RBC) Count 4.49 mill/uL (4.70-6.10); White Blood Cell (WBC) Count 8.12 10x3/uL (4.8-10.8)
[2025-07-15 15:44] LABS: Anisocytosis SLIGHT = 6-15 cells HPF (0-5); Macrocytosis SLIGHT = 6-15 cells HPF (0-5); Microcytosis SLIGHT = 6-15 cells HPF (0-5); Platelet Adequacy Comment Platelets Increased; Polychromasia SLIGHT = 2-3 cells HPF (0-2); Schistocytes SLIGHT = 2-5 cells HPF (0-1); Target Cells SLIGHT = 2-5 cells HPF (0-1)
[2025-07-15 15:52] LABS: ALT (SGPT) 17 U/L (Less than 45); AST (SGOT) 40 U/L (11-34); Albumin 4.2 g/dL (3.1-4.5); Alkaline Phosphatase 81 U/L (40-110); Anion Gap 16 mmol/L (10-20); BUN (Urea Nitrogen) 10 mg/dL (8.4-25.7); Bilirubin, Total 0.3 mg/dL (0.3-1.2); Calc. Creatinine Clearance 0 mL/min (70-130); Calcium 9.1 mg/dL (7.8-10.44); Carbon Dioxide 19 mmol/L (23-31); Chloride 107 mmol/L (98-107); Globulin 3.5 g/dL (2.4-3.5); Glucose 93 mg/dL (80-115); Potassium 3.7 mmol/L (3.5-5.1); Sodium 138 mmol/L (136-145)
[2025-07-15 16:46] LABS: INR-International Normal Ratio 1.3; Prothrombin Time 16.6 sec (12.0-14.7)
[2025-07-15 16:47] LABS: PTT 40.6 sec (22.9-36.1)
[2025-07-15] MEDS ORDERED: Acetaminophen 325 MG TAB PO PRN (16:59)
[2025-07-15 17:56] LABS: Hematocrit 33.0 % (42.0-52.0); Hemoglobin 10.6 g/dL (14.0-18.0); Platelet Count 455 10x3/uL (130-400)
[2025-07-15] MEDS ORDERED: hydrALAZINE 20 MG/ML VIAL SLOW IVP PRN (21:21)
[2025-07-15 21:38] VITALS: BMI 20.8
[2025-07-15] MEDS: Senokot S 8.6-50 MG TAB PO SCH (21:50)
[2025-07-15] MEDS: niCARdipine 25 MG in Sodium Chloride 0.9% 250 ML 250 ML IVPB SCH (21:58)
[2025-07-16] MEDS: Heparin 10,000 UNITS/ 10 ML VIAL SLOW IVP SCH (00:59)
[2025-07-16 04:26] LABS: #Basophils 0.04 10x3/uL (0.0-0.2); #Eosinophils 0.18 10x3/uL (0.0-0.7); #Monocytes 0.79 10x3/uL (0.11-0.59); #Neutrophils 4.39 10x3/uL (1.40-6.50); %Basophils 0.5 % (0.0-1.0); %Eosinophils 2.2 % (0.0-10.0); %Lymphocytes 32.8 % (21.0-51.0); %Monocytes 9.8 % (0.0-10.0); %Neutrophils 54.3 % (42.0-75.0); Hematocrit 33.3 % (42.0-52.0); Hemoglobin 10.9 g/dL (14.0-18.0); Mean Corpuscular Hemoglobin 22.7 pg (27.0-31.0); Mean Corpuscular Volume 69.4 fL (78.0-98.0); Platelet Count 479 10x3/uL (130-400); Red Blood Cell (RBC) Count 4.80 mill/uL (4.70-6.10); White Blood Cell (WBC) Count 8.08 10x3/uL (4.8-10.8)
[2025-07-16 04:32] LABS: Anion Gap 13 mmol/L (10-20); BUN (Urea Nitrogen) 10 mg/dL (8.4-25.7); Calc. Creatinine Clearance 75 mL/min (70-130); Calcium 9.1 mg/dL (7.8-10.44); Carbon Dioxide 22 mmol/L (23-31); Chloride 105 mmol/L (98-107); Glucose 99 mg/dL (80-115); Potassium 3.4 mmol/L (3.5-5.1); Sodium 137 mmol/L (136-145)
[2025-07-16] MEDS: Carvedilol 25 MG TAB PO SCH (08:23)
[2025-07-16] MEDS: Mupirocin 1 GM TUBE NASAL DECOLONIZATION NASAL SCH (08:24)
[2025-07-16] MEDS: Aspirin 81 mg Enteric Coated Tablet PO SCH (08:24)
[2025-07-16] MEDS: Pantoprazole 40 MG DR.TAB PO SCH (08:24)
[2025-07-16] MEDS: Valsartan 80 MG TAB PO SCH (10:14)
[2025-07-17 06:46] LABS: Anion Gap 12 mmol/L (10-20); BUN (Urea Nitrogen) 23 mg/dL (8.4-25.7); Calc. Creatinine Clearance 55 mL/min (70-130); Calcium 9.2 mg/dL (7.8-10.44); Carbon Dioxide 23 mmol/L (23-31); Chloride 105 mmol/L (98-107); Glucose 108 mg/dL (80-115); Potassium 3.5 mmol/L (3.5-5.1); Sodium 136 mmol/L (136-145)
[2025-07-17 13:15] VITALS: TEMP 98.4
[2025-07-17 13:52] VITALS: BP 151/85
== END 2025-07-17 15:31 | disposition home or self-care (01) | DRG 305 ==
LOC: ERS 14:27 → ERHOLD 16:32 → CCU 21:24 → T4-B 07-16 23:05
PROVIDERS: ADMIT Internal Medicine; ATTEND Internal Medicine
DX: I16.1 Hypertensive emergency (principal); I25.10 Atherosclerotic heart disease of native coronary artery without angina pectoris; I10 Essential (primary) hypertension; E78.5 Hyperlipidemia, unspecified; K21.9 Gastro-esophageal reflux disease without esophagitis; R06.6 Hiccough; D64.9 Anemia, unspecified; Z98.890 Other specified postprocedural states; Z88.0 Allergy status to penicillin; Z79.899 Other long term (current) drug therapy; Z79.82 Long term (current) use of aspirin
CPT/HCPCS: 36415; 71045; 80048; 80053; 84484; 85025; 85610; 85730; 93005; 96374; 96375; J1644; J1790; J7050